=== PATIENT | male | born 2000 | race Hispanic/Latino ===

== ENCOUNTER 2019-09-20 13:27 | Emergency (ER) | payer SELFPAY ==
[~2019-09-20] VITALS: Ht 175.3 cm; Wt 88.0 kg
[2019-09-20 15:17] LABS: HEMATOCRIT 44.8 % (39.0-50.0); HEMOGLOBIN 14.3 g/dl (14.0-18.0); IMMATURE GRANULOCYTES 0.3 % (0.0-5.0); MEAN CELL VOLUME 89.2 fL CALC (80.0-100.0); MEAN CORPUSCULAR HGB 28.5 pG CALC (26.0-32.0); MEAN CORPUSCULAR HGB CONC 31.9 g/dL CAL (32.0-36.0); NEUT# 9.55 thou/uL (1.82-7.42); RED BLOOD COUNT 5.02 mill/uL (4.70-6.10); RED CELL DISTRI WIDTH 13.5 % (11.5-15.5)
[2019-09-20 15:35] LABS: ANION GAP 10 (6-22 (CALC)); BUN 15 mg/dL (9-20); BUN/CREATININE RATIO 19 (12-20 (CALC)); CARBON DIOXIDE 31 mmol/l (22-30); CHLORIDE 98 mmol/l (95-108); CREATININE 0.8 mg/dL (0.7-1.3); GFR > 60 ML/MIN (>=60 (CALC)); GFR FOR AFR.AMER. > 60 ML/MIN (>=60 (CALC)); POTASSIUM 4.3 mmol/l (3.5-5.1); SODIUM 135 mmol/l (137-146)
[2019-09-20 17:29] VITALS: BP 119/60
== END 2019-09-20 17:26 | DRG 558 ==
LOC: ED 13:27
PROVIDERS: Student in an Organized Health Care Education/Training Program
DX: M65.842 Other synovitis and tenosynovitis, left hand (principal)